=== PATIENT | male | born 1965 | race Caucasian/White ===

== ENCOUNTER 2022-03-06 06:58 | Day surgery (SDC) | payer BC ==
[~2022-03-06] VITALS: Ht 182.9 cm; Wt 99.8 kg
[~2022-03-06 06:58] MED LIST: ALLEGRA-D 2424 HOUR PO; BACLOFEN; BLOOD PRESSURE; CHOLESTEROL; HYZAAR1 TA1 PO; LIPITOR20 M1 PO; MELOXICAM7.5 MG PO; OMEGA 31000 MG PO; PERCOCET 5/325M1 TAB PO
[2022-03-06] MEDS ORDERED: BACLOFEN10 MG PO (07:12)
[2022-03-06 09:03] VITALS: BP 118/78
== END 2022-03-06 09:27 | disposition home or self-care (01) | DRG 951 ==
LOC: ENDO 06:58
PROVIDERS: ATTEND Surgery
PROC: 0DBN8ZX Excision of Sigmoid Colon, Via Natural or Artificial Opening Endoscopic, Diagnostic (ICD-10-PCS; principal; 2022-03-06)
DX: Z12.11 Encounter for screening for malignant neoplasm of colon (principal); D12.5 Benign neoplasm of sigmoid colon; K57.30 Diverticulosis of large intestine without perforation or abscess without bleeding; K64.8 Other hemorrhoids